=== PATIENT | male | born 1970 | race Two or more races ===

== ENCOUNTER 2018-04-21 12:25 | Emergency (ER) | payer BC ==
[~2018-04-21] VITALS: Ht 180.3 cm; Wt 149.2 kg
[2018-04-21 12:32] VITALS: Ht 180.3 cm; Wt 149.2 kg
[2018-04-21 13:18] VITALS: BP 145/92
== END 2018-04-21 13:18 | disposition home or self-care (01) ==
LOC: ED 12:25
DX: T67.7XXA Heat edema, initial encounter (principal); L03.116 Cellulitis of left lower limb; L03.115 Cellulitis of right lower limb; E66.9 Obesity, unspecified; Z68.42 Body mass index [BMI] 45.0-49.9, adult; X58.XXXA Exposure to other specified factors, initial encounter; Y93.01 Activity, walking, marching and hiking; Y92.89 Other specified places as the place of occurrence of the external cause; Y99.8 Other external cause status
CPT/HCPCS: J0696

== ENCOUNTER 2018-04-23 10:47 | Emergency (ER) | payer BC ==
[~2018-04-23] VITALS: Ht 180.3 cm; Wt 149.8 kg
[2018-04-23 10:58] VITALS: Ht 180.3 cm; Wt 149.8 kg
[2018-04-23 13:24] VITALS: BP 146/76
== END 2018-04-23 13:24 | disposition home or self-care (01) ==
LOC: ED 10:47
DX: R21 Rash and other nonspecific skin eruption (principal)